=== PATIENT | female | born 1985 | race Caucasian/White ===

== ENCOUNTER 2017-01-23 07:42 | Emergency (ER) | payer SELFPAY ==
[~2017-01-23] VITALS: Ht 162.6 cm; Wt 88.5 kg
[~2017-01-23 07:42] MED LIST: AMOX500T PO; PHEN1TAB84 PO
[2017-01-23 07:47] VITALS: BP 132/60; PULSE 89; RESP 16; TEMP 98.8; O2SAT 99
[2017-01-23] MEDS ORDERED: BENZ100 PO (08:05)
[2017-01-23] MEDS ORDERED: ZITHTAB PO (08:05)
--- NOTE | 2017-01-23 08:05 | PD ---
HPI Chief Complaint: Cold / Flu Symptoms Time Seen by Provider: 07:55 Travel History International Travel<30 days: No Contact w/Intl Traveler<30days: No Traveled to known affect area: No History of Present Illness HPI This 31-year-old female says she's been sick for several days. She's been coughing since last Sunday. She had some fever yesterday. She does not smoke. She has no history of asthma. She has not been short of breath. She does have some upper abdominal pain when she coughs. There is been no vomiting or diarrhea. She has no allergies. 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 and a lot of people at work have been sick [facility] Past Medical History Diminished Hearing: No Genitourinary: Yes (HX UTI'S) Migraines: Yes Influenza Vaccination: No ?: Not LMP: 2 DAYS AGO : 1 Para: 1 Past Surgical History Abdominal Aneurysm Repair: No Section: Yes (X1) Cholecystectomy: Yes Gynecologic Surgery: Yes Social History Alcohol Use: Yes (OCCASIONAL) Tobacco Use: No Substance Use: No Allergies-Medications (Allergen,Severity, Reaction): Coded Allergies: No Known Allergies (Verified Adverse Reaction, Unknown, 01/23/17) Reported Meds & Prescriptions Reported Meds & Active Scripts Active No Active Prescriptions or Reported Medications Review of Systems General / Constitutional: Positive: Fever, No: Chills Eyes: No: Diploplia, Blurred Vision HENT: No: Headaches Cardiovascular: No: Chest Pain or Discomfort Respiratory: Positive: Cough, No: Wheezing, Orthopnea Gastrointestinal: No: Vomiting, Diarrhea Neurologic: No: Weakness, Dizziness Psychiatric: No: Anxiety Endocrine: No: Heat Intolerance Hematologic/Lymphatic: No: Easy Bruising Physical Exam Narrative GENERAL: Well-developed female not in respiratory distress SKIN: Focused skin assessment warm/dry. HEAD: Atraumatic. Normocephalic. EYES: Pupils equal and round. No scleral icterus. No injection or drainage. ENT: No nasal bleeding or discharge. Mucous membranes pink and moist. NECK: Trachea midline. No JVD. CARDIOVASCULAR: Regular rate and rhythm. No murmur appreciated. RESPIRATORY: No accessory muscle use. There is diffuse scattered rhonchi that clear with cough. Breath sounds equal bilaterally. GASTROINTESTINAL: Abdomen soft, non-tender, nondistended. Hepatic and splenic margins not palpable. MUSCULOSKELETAL: No obvious deformities. No clubbing. No cyanosis. No edema. NEUROLOGICAL: Awake and alert. No obvious cranial nerve deficits. Motor grossly within normal limits. Normal speech. PSYCHIATRIC: Appropriate mood and affect; insight and judgment normal. Data Data Last Documented VS Vital Signs Date Time Temp Pulse Resp B/P (MAP) Pulse Ox O2 Delivery O2 Flow Rate FiO2 01/23/17 07:47 98.8 89 16 132/60 (84) 99 MDM Medical Decision Making Medical Screen Exam Complete: Yes Emergency Medical Condition: Yes Medical Record Reviewed: Yes Differential Diagnosis Differential includes upper respiratory infection, bronchitis, pneumonia Narrative Course Main complaint is of persistent cough. I will give a trial of Tessalon Perles and also Z-Bryce in the event there is any pneumonia. She is stable for discharge Diagnosis Primary Impression: Upper respiratory infection Scripts Benzonatate (Tessalon Perles) 100 Mg Cap 200 MG PO TID Y for COUGH, #20 CAP 0 Refills Prov: Bola Zacarias MD 01/23/17 Azithromycin (Zithromax Z-Bryce) 250 Mg Dspk 250 MG PO DIRECTED for Infection, #1 DSPK 0 Refills 500 MG (2 tabs) day 1, then 1 tab days 2-5. Prov: Bola Zacarias MD 01/23/17 Disposition: 01 DISCHARGE HOME Condition: Stable Bola Zacarias MD Jan 23, 2017 08:05
== END 2017-01-23 08:19 | disposition home or self-care (01) ==
LOC: PHEFT 07:42
DX: J06.9 Acute upper respiratory infection, unspecified (principal)
CPT/HCPCS: 99284